=== PATIENT | female | born 1985 | race Caucasian/White ===

== ENCOUNTER 2018-12-27 16:49 | Emergency (ER) | payer MEDICAID ==
[~2018-12-27] VITALS: Ht 175.3 cm; Wt 93.0 kg
--- NOTE | 2018-12-27 17:28 | NUR ---
Pt taken from triage room straight to OF room 22 escorted by CANDIE Mehta.
--- NOTE | 2018-12-27 17:58 | NUR ---
pt placed on a 179. pt is admits to drinking etoh today. pt is laughing and then tearful
[2018-12-27] MEDS ORDERED: ESCI20TA PO (18:23)
[2018-12-27] MEDS ORDERED: BUPR150T8 PO (18:23)
[2018-12-27 18:37] LABS: URINE HCG NEGATIVE (NEG)
[2018-12-27] MEDS ORDERED: BUPR150T6 PO (18:38)
[2018-12-27 18:46] LABS: URINE AMPHETAMINE SCREEN NEGATIVE (Neg); URINE BARBITUATE SCREEN NEGATIVE (Neg); URINE BENZODIAZEPINES SCREEN NEGATIVE (Neg); URINE CANNABINOID SCREEN POSITIVE (Neg); URINE COCAINE SCREEN NEGATIVE (Neg); URINE METHADONE SCREEN NEGATIVE (Neg); URINE OPIATE SCREEN NEGATIVE (Neg); URINE PHENCYCLIDINE SCREEN NEGATIVE (Neg)
[2018-12-27 19:07] LABS: BASOPHILS # (AUTO) 0.1 X10'3 (0-0.2); EOSINOPHILS # (AUTO) 0.1 X10'3 (0-0.9); LYMPHOCYTES # (AUTO) 1.5 X10'3 (1.1-4.8); NEUTROPHILS # (AUTO) 2.6 X10'3 (1.8-7.7)
[2018-12-27 19:10] LABS: EOSINOPHILS % (AUTO) 3.2 % (0-6); HEMATOCRIT 40.1 % (35.0-45.0); HEMOGLOBIN 13.9 g/dl (12.0-16.0); LYMPHOCYTES % (AUTO) 31.2 % (21-51); MEAN CORPUSCULAR HGB CONC 34.6 g/dL (33.0-36.5); MEAN CORPUSCULAR VOLUME 89.6 FL (78-98); MEAN PLATELET VOLUME 7.8 FL (7.4-10.4); MONOCYTES # (AUTO) 0.4 X10'3 (0-0.9); MONOCYTES % (AUTO) 8.3 % (2-12); NEUTROPHILS % (AUTO) 55.1 % (42-75); PLATELET COUNT 296 X10'3 (140-440); RED BLOOD COUNT 4.48 X10'6 (4.20-5.60); RED CELL DISTRIBUTION WIDTH 15.8 % (11.5-14.5); WHITE BLOOD COUNT 4.7 X10'3 (4.5-11.0)
[2018-12-27 19:20] LABS: ALANINE AMINOTRANSFERASE 191 U/L (12-78); ALBUMIN 4.1 G/DL (3.4-5.0); ALBUMIN/GLOBULIN RATIO 0.9 (1.1-1.5); ALKALINE PHOSPHATASE 94 IU/L (46-116); ANION GAP 14 (8-16); ASPARTATE AMINO TRANSFERASE 220 U/L (10-37); BILIRUBIN,TOTAL 0.4 MG/DL (0.1-1.0); BLOOD UREA NITROGEN 11 MG/DL (7-18); BUN/CREATININE RATIO 12.9 (6.6-38.0); CALCIUM 8.6 MG/DL (8.5-10.1); CHLORIDE 97 MMOL/L (99-107); CREATININE 0.85 MG/DL (0.40-0.90); GLUCOSE 211 MG/DL (70-104); POTASSIUM 3.4 MMOL/L (3.5-5.1); SODIUM 136 MMOL/L (135-145); TOTAL CARBON DIOXIDE 24.8 MMOL/L (24-32); TOTAL PROTEIN 8.7 G/DL (6.4-8.2); eGFR 77 ML/MIN
--- NOTE | 2018-12-27 19:20 | NUR ---
The patient is a 33 year old patient who self presented with a friend after being suicidal and drinking vodka earlier in the day. The patient is pleasant and cooperative but intoxicated. She reports she has a hx of MDD with a possible dx of bipolar. She reports she is having racing thoughts and she has not slept in at least 3 days. She has been drinking for the past 4 days about a pint of vodka per her report. Reports last etoh was 4pm today. She denies a hx of rehab treatment in the past. She denies hx of DUIs or other arrests. She stated that she has visual hallucinations of people and objects but denies auditory hallucinations. She is a current patient of Dr. Ramirez at [facility] and recently had Wellbutrin added to her lexapro for depression. She reports she has not been taking her medications consistently. She reports two prior inpatient hospitalizations. Last hospitalization was in the [place] in June 2018. She reports that she has not been eating well 2nd to a poor appetite and has lost 10lbs in the past 3 weeks. She was made aware of the plan for her to stay here in the ER for tonight and tomorrow she would be seen by [facility] once her BA is within the legal limit.
[2018-12-27 19:30] LABS: ETHANOL 0.389 GM/DL (0.0-0.010)
[2018-12-27 19:54] LABS: BASOPHILS % (AUTO) 2.2 % (0-1)
--- NOTE | 2018-12-27 20:18 | NUR ---
Patient's BA 0.389 and provider aware.
--- NOTE | 2018-12-27 21:28 | NUR ---
The patient is on her bed but awake and restless
[2018-12-27] MEDS ORDERED: LORazepam 1 MG tablet PO ONE (22:35)
--- NOTE | 2018-12-27 23:17 | NUR ---
THe patient has been restless and unable to fall asleep. PA made aware and ativan given. THe patient was also given a snack and was up to use the bathroom.
--- NOTE | 2018-12-28 02:03 | NUR ---
The patient appears to be asleep
--- NOTE | 2018-12-28 05:10 | NUR ---
The patient is awake and feels like she might start going into withdrawals from ETOH. She stated she feels shakey. She does not complain of high anxiety. She is reporting mild nuasea. She denies abd cramping. Vital signs HR 101, BP 145/101. Her BP was high on admit and she reports a history of elevated BP. She denies ever having a withdrawl seizure but admits to having hallucinations when coming off the etoh.
[2018-12-28] MEDS ORDERED: ondansetron 4mg rapidly disintigrating tab PO ONE ×2 (05:20→21:05)
[2018-12-28] MEDS ORDERED: buPROPion SR 150mg tablet PO SCH (08:00)
[2018-12-28] MEDS: buPROPion SR 150mg tablet PO SCH (08:19)
[2018-12-28] MEDS: citalopram 20mg tablet PO SCH (08:19)
[2018-12-28] MEDS ORDERED: chlordiazePOXIDE 25mg capsule PO ONE (09:35)
--- NOTE | 2018-12-28 11:19 | NUR ---
pt resting and this time. no physical signs of etoh withdrawal at this time
[2018-12-28] MEDS ORDERED: ibuprofen tablet 400 MG TABLET PO ONE ×2 (13:25→21:05)
--- NOTE | 2018-12-28 13:45 | NUR ---
PT MEDICATED WITH IBUPROFEN PER ORDERS, PT REPORTS HEADACHE, PT ALSO GIVEN APPLESAUCE, APPLEJUICE, CHEESESTICK PT REPORTS SHE DID NOT EAT MUCH FROM HER LUNCH TRAY, PT WAS HOPING FOR SOME FRUIT PARFAIT BUT GOT A PUDDING ON HER LUNCH TRAY
--- NOTE | 2018-12-28 20:00 | NUR ---
The patient is a 33 year old female here on a 5150 hold written by [facility] for being a danger to herself. She is very pleasant. She continues to have suicidal thoughts frequently here on the unit. She is superficially bright but when she talks about why she is here she becomes very tearful. She stated that her depression is at a 9/10. She denies hearing voices but she is seeing faces in the curtains and sees the cabezas moving. She has been having N/V during the day and she is eating poorly. She reports anxiety "I'm anxious about going to the [employer] bin and how I can get out of here" She feels very embarrassed about being on a psychiatric hold.
[2018-12-28 20:22] LABS: CLARITY,URINE SLIGHTLY CLOUDY (Clear); COLOR,URINE AMBER (Yellow); GLUCOSE, URINE NEGATIVE (Neg); KETONES,URINE 40 mg/dl (Neg); LEUKOCYTE ESTERASE ,URINE NEGATIVE (Neg); NITRITES, URINE POSITIVE (Neg); OCCULT BLOOD,URINE NEGATIVE (Neg); PH,URINE 7.5 (4.8-8.0); PROTEIN,URINE 100 mg/dl (Neg)
[2018-12-28 20:24] LABS: UA COLLECTION TYPE CLN CATCH MIDSTREAM
--- NOTE | 2018-12-28 20:24 | NUR ---
Per [facility] the patient will be represented to [facility] in the morning.
[2018-12-28 20:28] LABS: MUCUS STRANDS MANY /LPF (Neg); RBC,URINE NONE SEEN /HPF (0-2); SQUAMOUS EPITHELIAL CELL,UR MANY /LPF (FEW)
[2018-12-28 20:29] LABS: BACTERIA,URINE 2+ /HPF (Neg)
--- NOTE | 2018-12-28 21:13 | NUR ---
Patient resting on her bed and reading. Complains of nausea and MD made aware and orders received.
--- NOTE | 2018-12-28 23:09 | NUR ---
The patient appears to be asleep at this time
--- NOTE | 2018-12-28 23:57 | NUR ---
The patient is awake and reading
--- NOTE | 2018-12-29 00:48 | NUR ---
The patient is resting on her bed and reading
--- NOTE | 2018-12-29 01:09 | NUR ---
reviewed UA results with MD. Patient is asymptomatic for UTI. Specimen with many squamous cells. No new orders at this time.
[2018-12-29] MEDS: ibuprofen tablet 400 MG TABLET PO PRN ×5 (01:13→19:32)
--- NOTE | 2018-12-29 03:15 | NUR ---
The patient is laying quietly in her bed and reading.
--- NOTE | 2018-12-29 04:38 | NUR ---
The patient is reading on her bed
--- NOTE | 2018-12-29 06:48 | NUR ---
Patient awake, alert, no distress observed. Patient just got a cup of hot tea from the tech. Continue to monitor.
[2018-12-29] MEDS: buPROPion SR 150mg tablet PO SCH (08:20)
[2018-12-29] MEDS: citalopram 20mg tablet PO SCH (08:21)
--- NOTE | 2018-12-29 08:35 | NUR ---
Patient talking on the phone, laughing. No distress observed. Continue to monitor.
--- NOTE | 2018-12-29 10:45 | NUR ---
pt has a friend at bedside.
--- NOTE | 2018-12-29 10:46 | NUR ---
pt ate 95% of her breakfast
--- NOTE | 2018-12-29 12:08 | NUR ---
Patient cleaning up in bathroom. No distress. Continue to monitor.
--- NOTE | 2018-12-29 13:12 | NUR ---
pt is in bed supine, just requested a blanket, was given one, is pleasant, calm, no s/s of distress
--- NOTE | 2018-12-29 15:05 | NUR ---
Patient awake, alert and visiting with her mother. No distress observed. Continue to monitor.
--- NOTE | 2018-12-29 19:01 | NUR ---
recvd report from Sandy ESTRELLA, assumed care of pt, pt is sitting up in bed, states she doesnt know why she is here. She is sweating and asks to change scrubs and requests more blankets. Pt reports a REYNOSO and is requesting ibuprofen.
[2018-12-29] MEDS ORDERED: LORazepam 1 MG tablet PO ONE (19:20)
--- NOTE | 2018-12-29 20:38 | NUR ---
[facility] arrived to transport another pt and pt sat up in bed "hey wait a minute, I was here first, I'm supposed to leave before her!" Explained to pt that it doesnt work like that and updated pt on plan.
--- NOTE | 2018-12-29 23:23 | NUR ---
Pt asleep, laying on her left side. RR even and unlabored no s/s distress. Pt appears to be resting comfortably.
--- NOTE | 2018-12-30 01:45 | NUR ---
pt is sleeping rr even and unlabored no s/s of distress
[2018-12-30] MEDS: ibuprofen tablet 400 MG TABLET PO PRN ×3 (04:16→20:13)
--- NOTE | 2018-12-30 04:22 | NUR ---
Pt woke up and asked to use the phone, explained to pt that its 4am and she returned to bed and began sobbing, pt states its not fair that other people came in after her and left before she did. Explained to pt that the replaced by [facility] makes placement arrangments and we don't have control over where and when she is accepted to other facilities. Pt c/o REYNOSO and the beds being uncomfortable, offered pt prn and asked if she needed anything else. Pt took prn for REYNOSO and yelled "Great! Now I'm all better!" Pt became belligerent and began yelling using expletives and c/o the floors being dirty and I havent seen this floor mopped since I've been here! Pt pulled her curtain all the way shut. Explained to pt that her curtain needs to be kept open. Pt attempted to argue about the rules. Requested pt lower her voice as other pts are sleeping and pt yelled "tough break!" Pt continued to sob loudly in bed.
[2018-12-30] MEDS: LORazepam 1 MG tablet PO PRN ×3 (05:04→20:13)
--- NOTE | 2018-12-30 05:45 | NUR ---
Pt was given prn ativan w/good effect, pt is now sitting up in bed, quietly reading her book.
--- NOTE | 2018-12-30 06:23 | NUR ---
Received report from Cathryn ESTRELLA.
[2018-12-30] MEDS: buPROPion SR 150mg tablet PO SCH (09:15)
[2018-12-30] MEDS: citalopram 20mg tablet PO SCH (09:16)
[2018-12-30] MEDS ORDERED: METO-467 PO (09:54)
[2018-12-30] MEDS ORDERED: metoprolol tartrate 50mg tablet PO ONE (10:52)
--- NOTE | 2018-12-30 12:50 | NUR ---
Pt laughing out loud and conversating on telephone.
--- NOTE | 2018-12-30 13:05 | NUR ---
Pt sitting at bedside eating lunch tray.
--- NOTE | 2018-12-30 18:59 | NUR ---
Received report from Jocelynn ESTRELLA, assumed care. Pt is currently sleeping in bed on her left side, rr even and unlabored no s/s distress.
--- NOTE | 2018-12-30 19:59 | NUR ---
Pt is awake crying that she is still here, pt states its unfair that she is here and other people have left. Spoke w/[facility] and they stated some of the facilities were concerened about her BRIT and possible withdrawls and this is the reason they have not accepted yet, but her packet was resubmitted to facilities today.
--- NOTE | 2018-12-30 20:29 | NUR ---
Pt sitting up in bed crying. Pt just took ativan and ibuprofen, reports back pain from the bed and feeling anxious because she has not been placed. Pt finished her dinner meal and empty tray was removed from bedside table.
--- NOTE | 2018-12-30 22:56 | NUR ---
Pt is sleeping laying on her right side. RR 14 even and unlabored.
--- NOTE | 2018-12-31 01:00 | NUR ---
Pt is sleeping on her left side rr even and unlabored no s/s distress.
[2018-12-31] MEDS: ibuprofen tablet 400 MG TABLET PO PRN (03:33)
[2018-12-31] MEDS: LORazepam 1 MG tablet PO PRN (03:33)
--- NOTE | 2018-12-31 03:42 | NUR ---
Pt is awake crying c/o back ache from the bed, She is requesting ibuprofen for back pain and requests ativan. C/o of 6/10 anxiety. Pt is up pacing in front of her bed.
--- NOTE | 2018-12-31 04:34 | NUR ---
pt was awake complaining that her salad was missing. Yesterday she complained of her food being left on her tray table since dinner. Explained to pt the tech had cleaned her tray table after midnight of any old food still on her tray. Pt c/o being hungry and she was offered milk and jake crackers which she said she would like. She was given the milk and crackers then asked if she could look through the trash for her salad. Pt was given a salad then she requested another salad which she was also provided with. She then asked for more crackers and was told breakfast will be served in the morning.
--- NOTE | 2018-12-31 05:14 | NUR ---
Pt has remained awake, has labile affect, giggling then tearful. Reading a book, she is pleasant but asking for mutPt states she continues to feel depressed, states "Im always depressed." Pt denies s/i, but then states "I giggle sometimes, but Tiago Willoughby wasnt depressed all the time and look what he did." Pt states she doesn't believe her meds are working for her, but she doesn't have much hope of her depression getting better, "Like I said I'm always depressed."
--- NOTE | 2018-12-31 06:39 | NUR ---
Nursing Note: Pt laying on L side in her bed and is reading a book. No S&S of distress, will continue to monitor.
[2018-12-31] MEDS ORDERED: metoprolol tartrate 25mg tablet PO SCH (08:00)
[2018-12-31] MEDS: buPROPion SR 150mg tablet PO SCH (08:19)
[2018-12-31] MEDS: citalopram 20mg tablet PO SCH (08:20)
[2018-12-31] MEDS ORDERED: bisacodyl 5mg tablet.DR PO PRN (08:30)
--- NOTE | 2018-12-31 08:52 | NUR ---
Nursing Note: Notified by [facility] that Dr. Forman of [facility] has accepted pt. Will continue to monitor.
--- NOTE | 2018-12-31 09:37 | NUR ---
Nursing Note: Pt sitting up in bed reading book, no S&S of distress. Pt reports constipation and not having a normal BM since 12/25. Today, she reports straining and had a small, hard BM. Ducolax administered. Will continue to monitor.
--- NOTE | 2018-12-31 10:29 | NUR ---
Discharge Note: Pt transferred to [facility] at 1027, via wheelchair, escorted by KIMBERLY Mehta, security Dheeraj, and security Mildred. Pt calm and cooperative. Pt denies SI at this time, but describes feeling suicidal at home. She talked about having a premonition that she would not live past the age of 34. No S&S of ETOH withdrawal noted. Discussed ETOH cessation and encouraged pt to consider AA or a recovery program. Pt took all possessions with her.
[2018-12-31 10:34] VITALS: BP 120/88
[2018-12-31] MEDS ORDERED: METO-395 PO (13:33)
== END 2018-12-31 10:27 ==
LOC: ER 16:50
DX: F32.9 Major depressive disorder, single episode, unspecified (principal); R45.851 Suicidal ideations; F10.129 Alcohol abuse with intoxication, unspecified; R74.0 Nonspecific elevation of levels of transaminase and lactic acid dehydrogenase [LDH]; R47.81 Slurred speech; F12.90 Cannabis use, unspecified, uncomplicated; Z79.899 Other long term (current) drug therapy; Y90.9 Presence of alcohol in blood, level not specified
CPT/HCPCS: 36415; 80053; 80305; 80320; 81001; 81025; 84443; 85025; 99285